=== PATIENT | male | born 1945 | race Caucasian/White ===

== ENCOUNTER 2023-08-03 06:18 | Outpatient (RCR) | payer MEDICARE, OTHER, SELFPAY | END 2023-08-03 23:59 | disposition home or self-care (01) | LOC: RPT 06:18 | PROVIDERS: ATTENDING PHYSICIAN Specialist; PRIMARYCARE PHYSICIAN Family Medicine | DX: Z47.89 Encounter for other orthopedic aftercare (principal); Z73.6 Limitation of activities due to disability; M62.81 Muscle weakness (generalized); M25.511 Pain in right shoulder | CPT/HCPCS: 97010; 97110; 97112 ==

== ENCOUNTER 2023-08-24 06:35 | Outpatient (RCR) | payer MEDICARE, OTHER, SELFPAY | END 2023-08-25 10:13 | disposition home or self-care (01) | LOC: RPT 06:35 | PROVIDERS: ATTENDING PHYSICIAN Specialist; PRIMARYCARE PHYSICIAN Family Medicine | DX: Z47.89 Encounter for other orthopedic aftercare (principal); Z73.6 Limitation of activities due to disability; M62.81 Muscle weakness (generalized); M25.511 Pain in right shoulder; M25.521 Pain in right elbow | CPT/HCPCS: 97010; 97110 ==

== ENCOUNTER → 2023-11-19 10:12 | Outpatient (REF) | payer MEDICARE, OTHER, SELFPAY ==
[2023-11-19 12:31] LABS: % Basophils 0.9 % (0-2); % Immature Granulocytes 0.2 % (0-0.5); % Lymphocytes 23.8 % (20.5-51.1); % Monocytes 10.9 % (1.7-9.3); % Neutrophils 62.2 % (42.2-75.2); Absolute Basophils 0.1 10^3/uL (0-0.2); Absolute Eosinophils 0.1 10^3/uL (0-0.7); Absolute Lymphocytes 1.3 10^3/uL (1.2-3.4); Absolute Monocytes 0.6 10^3/uL (0.1-0.6); Absolute Neutrophils 3.5 10^3/uL (1.4-6.5); Hematocrit 42.8 % (39.0-52.0); Hemoglobin 14.7 g/dL (13.0-18.0); Mean Corp Hgb Conc. 34.3 g/dL (33.0-37.0); Mean Corpuscular Hgb 33.6 pg (27.0-31.0); Mean Corpuscular Volume 97.7 fL (80.0-94.0); Mean Platelet Volume 9.8 fL (7.4-10.4); Nucleated Red Blood Cells % 0 % (-); Platelet Count 238 10^3/uL (130-400); Red Blood Cell Count 4.38 10^6/uL (4.70-6.10); Red Cell Dist. Width 12.5 % (11.5-14.5); White Blood Cell Count 5.6 10^3/uL (4.8-10.8)
[2023-11-19 12:47] LABS: ALT (SGPT) 21 U/L (0-50); AST (SGOT) 27 U/L (17-59); Albumin 4.4 g/dl (3.5-5.0); Alkaline Phosphatase 68 U/L (38-126); Blood Urea Nitrogen 22 mg/dl (9-20); Calcium 9.7 mg/dl (8.4-10.2); Carbon Dioxide 23 mmol/L (22-30); Chloride 105 mmol/L (98-107); Glucose 96 mg/dl (70-99); HDL Cholesterol 63 mg/dl; LDL Cholesterol, Calculated 112 mg/dl; Potassium 4.3 mmol/L (3.5-5.1); Sodium 141 mmol/L (135-145); Total Bilirubin 1.1 mg/dl (0.2-1.3); Total Cholesterol 191 mg/dl (50-199); Total Protein 7.4 g/dl (6.3-8.2); Triglyceride 82 mg/dl (10-149); Very Low Density Lipoprotein 16 mg/dl (0-30); eGFR > 60.00
[2023-11-19 13:19] LABS: TSH Reflex To Free T4 4.14 uIU/ml (0.47-4.68)
== END ==
LOC: REG 10:12
PROVIDERS: ATTENDING PHYSICIAN Family Medicine
DX: I10 Essential (primary) hypertension (principal); E78.00 Pure hypercholesterolemia, unspecified; E03.9 Hypothyroidism, unspecified; I25.10 Atherosclerotic heart disease of native coronary artery without angina pectoris; N28.9 Disorder of kidney and ureter, unspecified
CPT/HCPCS: 36415; 80053; 80061; 84443; 85025

== ENCOUNTER → 2024-05-21 09:35 | Outpatient (REF) | payer MEDICARE, OTHER, SELFPAY ==
[2024-05-21 11:08] LABS: % Basophils 0.7 % (0-2); % Eosinophils 1.6 % (0-6); % Immature Granulocytes 0.5 % (0-0.5); % Lymphocytes 18.7 % (20.5-51.1); % Monocytes 10.7 % (1.7-9.3); % Neutrophils 67.8 % (42.2-75.2); Absolute Eosinophils 0.1 10^3/uL (0-0.7); Absolute Lymphocytes 1.1 10^3/uL (1.2-3.4); Absolute Monocytes 0.6 10^3/uL (0.1-0.6); Absolute Neutrophils 3.9 10^3/uL (1.4-6.5); Hemoglobin 15.1 g/dL (13.0-18.0); Mean Corp Hgb Conc. 33.6 g/dL (33.0-37.0); Mean Corpuscular Hgb 33.5 pg (27.0-31.0); Mean Corpuscular Volume 99.8 fL (80.0-94.0); Nucleated Red Blood Cells % 0 % (-); Platelet Count 210 10^3/uL (130-400); Red Blood Cell Count 4.51 10^6/uL (4.70-6.10); White Blood Cell Count 5.7 10^3/uL (4.8-10.8)
[2024-05-21 11:47] LABS: ALT (SGPT) 21 U/L (0-50); AST (SGOT) 26 U/L (17-59); Albumin 4.7 g/dl (3.5-5.0); Alkaline Phosphatase 57 U/L (38-126); Blood Urea Nitrogen 22 mg/dl (9-20); Calcium 9.5 mg/dl (8.4-10.2); Carbon Dioxide 27 mmol/L (22-30); Chloride 103 mmol/L (98-107); Glucose 104 mg/dl (70-99); HDL Cholesterol 65 mg/dl; LDL Cholesterol, Calculated 124 mg/dl; Potassium 4.7 mmol/L (3.5-5.1); Sodium 144 mmol/L (135-145); Total Bilirubin 1.1 mg/dl (0.2-1.3); Total Cholesterol 204 mg/dl (50-199); Total Protein 7.4 g/dl (6.3-8.2); Triglyceride 76 mg/dl (10-149); Very Low Density Lipoprotein 15 mg/dl (0-30); eGFR > 60.00
[2024-05-21 12:03] LABS: TSH Reflex To Free T4 3.91 uIU/ml (0.47-4.68)
== END ==
LOC: REG 09:35
PROVIDERS: ATTENDING PHYSICIAN Physician Assistant; OTHER PHYSICIAN Internal Medicine Cardiovascular Disease
DX: I10 Essential (primary) hypertension (principal); E78.00 Pure hypercholesterolemia, unspecified; R29.898 Other symptoms and signs involving the musculoskeletal system; I25.10 Atherosclerotic heart disease of native coronary artery without angina pectoris; E78.5 Hyperlipidemia, unspecified; E03.9 Hypothyroidism, unspecified
CPT/HCPCS: 36415; 80053; 80061; 84443; 85025

== ENCOUNTER → 2024-07-18 15:34 | Outpatient (REF) | payer MEDICARE, OTHER, SELFPAY | LOC: RCS 15:34 | PROVIDERS: ATTENDING PHYSICIAN Family Medicine; FAMILY PHYSICIAN Family Medicine | DX: R06.02 Shortness of breath (principal) | CPT/HCPCS: 71046; 93005; 93306 ==

== ENCOUNTER → 2024-08-21 10:25 | Outpatient (REF) | payer MEDICARE, OTHER, SELFPAY ==
[2024-08-21 11:57] LABS: Blood Urea Nitrogen 25 mg/dl (9-20); Calcium 9.6 mg/dl (8.4-10.2); Carbon Dioxide 35 mmol/L (22-30); Chloride 101 mmol/L (98-107); Glucose 109 mg/dl (70-99); Potassium 4.8 mmol/L (3.5-5.1); Sodium 143 mmol/L (135-145); eGFR 50.81
[2024-08-21 11:58] LABS: NT-proBNP 5580 pg/ml
== END ==
LOC: REG 10:25
PROVIDERS: ATTENDING PHYSICIAN Physician Assistant
DX: I50.30 Unspecified diastolic (congestive) heart failure (principal)
CPT/HCPCS: 36415; 80048; 83880

== ENCOUNTER → 2024-08-31 06:51 | Outpatient (REF) | payer MEDICARE, OTHER, SELFPAY | LOC: RCS 06:51 | PROVIDERS: ATTENDING PHYSICIAN Internal Medicine Cardiovascular Disease; FAMILY PHYSICIAN Family Medicine | DX: I10 Essential (primary) hypertension (principal); I48.0 Paroxysmal atrial fibrillation | CPT/HCPCS: 78452; 93017; A9500; J2785 ==

== ENCOUNTER 2024-09-10 07:01 | Day surgery (SDC) | payer MEDICARE, OTHER, SELFPAY ==
[2024-09-10 07:30] VITALS: BMI 29.0
== END 2024-09-10 08:41 | disposition home or self-care (01) ==
LOC: CATH 07:01
PROVIDERS: ATTENDING PHYSICIAN Internal Medicine Cardiovascular Disease; FAMILY PHYSICIAN Family Medicine; OTHER PHYSICIAN Internal Medicine Cardiovascular Disease
DX: I48.91 Unspecified atrial fibrillation (principal); I48.3 Typical atrial flutter; I10 Essential (primary) hypertension; E78.00 Pure hypercholesterolemia, unspecified; E03.9 Hypothyroidism, unspecified; I25.10 Atherosclerotic heart disease of native coronary artery without angina pectoris; Z85.828 Personal history of other malignant neoplasm of skin; Z87.891 Personal history of nicotine dependence; Z79.01 Long term (current) use of anticoagulants
CPT/HCPCS: 92960; 93005

== ENCOUNTER → 2024-10-29 07:54 | Outpatient (REF) | payer MEDICARE, OTHER, SELFPAY ==
[2024-10-29 08:40] LABS: % Basophils 0.8 % (0-2); % Eosinophils 2.2 % (0-6); % Immature Granulocytes 0.2 % (0-0.5); % Lymphocytes 17.2 % (20.5-51.1); % Monocytes 9.1 % (1.7-9.3); % Neutrophils 70.5 % (42.2-75.2); Absolute Eosinophils 0.1 10^3/uL (0-0.7); Absolute Lymphocytes 0.9 10^3/uL (1.2-3.4); Absolute Monocytes 0.5 10^3/uL (0.1-0.6); Absolute Neutrophils 3.6 10^3/uL (1.4-6.5); Hematocrit 42.8 % (39.0-52.0); Mean Corpuscular Hgb 33.1 pg (27.0-31.0); Mean Corpuscular Volume 94.5 fL (80.0-94.0); Mean Platelet Volume 9.8 fL (7.4-10.4); Nucleated Red Blood Cells % 0 % (-); Platelet Count 197 10^3/uL (130-400); Red Blood Cell Count 4.53 10^6/uL (4.70-6.10); Red Cell Dist. Width 13.4 % (11.5-14.5); White Blood Cell Count 5.1 10^3/uL (4.8-10.8)
[2024-10-29 08:46] LABS: INR 1.22; PT 15.7 Sec (11.4-14.6)
[2024-10-29 08:52] LABS: ALT (SGPT) 25 U/L (0-50); AST (SGOT) 28 U/L (17-59); Albumin 4.3 g/dl (3.5-5.0); Alkaline Phosphatase 55 U/L (38-126); Blood Urea Nitrogen 27 mg/dl (9-20); Calcium 9.5 mg/dl (8.4-10.2); Carbon Dioxide 26 mmol/L (22-30); Chloride 109 mmol/L (98-107); Glucose 99 mg/dl (70-99); Magnesium 1.7 mg/dl (1.6-2.3); Potassium 4.2 mmol/L (3.5-5.1); Sodium 144 mmol/L (135-145); Total Bilirubin 1.2 mg/dl (0.2-1.3); Total Protein 7.1 g/dl (6.3-8.2); eGFR 50.81
== END ==
LOC: SDSPAT 07:54
PROVIDERS: ATTENDING PHYSICIAN Internal Medicine Cardiovascular Disease; FAMILY PHYSICIAN Family Medicine; OTHER PHYSICIAN Internal Medicine Cardiovascular Disease
DX: I48.0 Paroxysmal atrial fibrillation (principal)
CPT/HCPCS: 36415; 75572; 80053; 83735; 85025; 85610; 86850; 86900; 86901; 93005; Q9967

== ENCOUNTER 2024-11-08 07:02 | Day surgery (SDC) | payer MEDICARE, OTHER, SELFPAY ==
--- NOTE | 2024-10-31 08:34 | HPS.HSE ---
Family Physician
-
Family Physician: NO INTERVIEW UNKNOWN
Chief Complaint
-
Persistent atrial fibrillation. Typical atrial flutter.
History of Present Illness
The patient is an 79-year-old male presenting today for persistent atrial fibrillation with underlying typical atrial flutter. The patient reports a history of shortness of breath, mainly with exertion, secondary to this diagnosis. He
previously underwent two CARMEN-guided cardioversions in June 2022 and September 2024 for his atrial arrhythmias. Fortunately, he has noticed an improvement in his shortness of breath after his most recent cardioversion. He is on current
pharmacological therapy with Amiodarone and Metoprolol Succinate. He does report compliance with Eliquis for oral anticoagulation. He is interested in pursuing with pulmonary vein isolation for further arrhythmia management. Prior to undergoing his
ablation, he will proceed with a transesophageal echocardiogram to definitively rule out a left atrial appendage thrombus. He denies any current complaints today such as chest pain, shortness of breath at rest, nausea, vomiting, diarrhea,
lightheadedness, dizziness, cough, sore throat, or fever.
Medical History
Past Medical History
Past Medical History: Reports Other
Additional Past Medical History:
1. Persistent atrial fibrillation with typical atrial flutter, status post CARMEN-guided cardioversion x2; pharmacological therapy with Metoprolol Succinate and Amiodarone, oral anticoagulation with Eliquis.
2. Hypertension.
3. Hypercholesterolemia.
4. Coronary artery disease.
5. Aortic atherosclerosis.
6. First-degree AV block.
7. Congestive heart failure, preserved ejection fraction.
8. 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
9. 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
10. Chronic kidney disease stage 3.
11. Multilevel degenerative disc disease.
12. Hypothyroidism.
13. Skin cancer, including Melanoma, status post multiple excisions.
14. Chronic postnasal drip.
15. History of fever of unknown origin.
16. Hearing impairment bilaterally.
17. Obesity, BMI 32.0.
18. Remote history of tobacco abuse.
Past Surgical History: Reports Other
Additional Past Surgical History:
1. CARMEN guided cardioversion x2.
2. Right greater saphenous vein ablation.
3. Right shoulder rotator cuff repair.
4. Bilateral carpal tunnel release.
5. Appendectomy.
6. Tonsillectomy.
7. Multiple skin cancer excisions.
8. Bilateral cataract extraction.
9. Colonoscopy x3.
Social History
Tobacco: Former Smoker (He is a former 1 pack per day cigarette smoker who quit tobacco products altogether in 1975.)
Alcohol: Other (He reports, on average, drinking alcohol 1-2 times a week. )
Personal:
Living: Other (The patient lives in a two-story home with his .)
Family History
Family History: Not pertinent
Allergies / Home Medications
Allergy/Medication List:
Home medications:
1. Amiodarone 200 mg p.o. daily.
2. Apixaban 5 mg p.o. twice a day.
3. Cholecalciferol 50 mcg p.o. twice a day.
4. Furosemide 20 mg p.o. daily.
5. Levothyroxine 25 mcg p.o. daily.
6. Metoprolol Succinate 25 mg p.o. daily.
7. Multivitamin 1 tablet p.o. daily.
8. Rosuvastatin 10 mg p.o. every other day.
Allergies: No known allergies.
Review of Systems
-
A 12 point ROS was completed and negative except as noted: Yes
Physical Exam
Vital Signs
Blood pressure 138/79, heart rate 58, respirations 18, pulse ox 98 percent on room air.
Height 6 feet, weight 107.1 kg, BMI 32.0.
Physical Exam
General: Well Developed, Well Nourished and No Apparent Distress
HEENT: NormoCephalic, Moist mucous membranes, Atraumatic and PERRLA
Respiratory: Clear
Cardiac: Bradycardia
GI: Soft, Non Tender, Non Distended and Other (Obese. )
Musculoskeletal: No Edema, Normal Gait & Station and Other (Approximately 1' superficial wound of right forearm, healing appropriately. No bleeding or discharge noted. )
Skin: Warm and Dry
Neuro: AO x 3 and Nonfocal/grossly intact
Laboratory Results
-
DIAGNOSTIC STUDIES as of 10/29/2024: White blood cell count 5.1, hemoglobin 15.0, platelet count 197,000. PT 15.7, INR 1.22. Sodium 144, potassium 4.2, BUN 27, creatinine 1.4, glucose 99, calcium 9.5, magnesium 1.7, AST 28, ALT 25, albumin 4.3.
Blood type A negative.
EKG 10/29/2024: Sinus bradycardia with first-degree AV block. Otherwise normal EKG.
Chest CT 10/29/2024: Short segment common vestibule for the left superior and inferior pulmonary veins, fairly commonly seen and considered normal variant. Partial non opacification of the left atrial appendage possibly related to incomplete
contrast filling; however, cannot rule out thrombus. The left atrium is otherwise well opacified.
Nuclear stress test 08/31/2024: No evidence of ischemia or scar. Inferior soft tissue attenuation artifact present. The ejection fraction is 34%. Stress risk is intermediate risk due to the use of a pharmacological agent.
Echocardiogram 07/18/2024: Left ventricular ejection fraction is 51%. Moderate concentric left ventricular hypertrophy. Stage II diastolic dysfunction suggestive of abnormal relaxation and increased filling pressures. Normal right ventricular size
and function. Severely dilated left atrium. No significant valvular pathology. Compared to the prior transesophageal echocardiogram dated 06/18/2022, there is no significant change.
Impression/Plan
-
IMPRESSION/PLAN:
1. Persistent atrial fibrillation and typical atrial flutter: The patient is in need of pulmonary vein isolation; however, he will undergo a tranesophageal echocardiogram first on 11/08/[address] Timothy Bertrand to definitively rule out a left
atrial appendage thrombus. The benefits and risks of the procedure have been explained to the patient. The patient understands these risks and wishes to proceed.
2. Chronic kidney disease: Given his recent creatinine, his Furosemide was recently reduced from daily dosing to Tuesday, Tuesday, and Tuesday dosing. He will undergo a repeat BMP in the near future at the discretion of Dr. Jack Patel.
[2024-11-08 07:58] VITALS: BMI 31.4
== END 2024-11-08 10:20 | disposition home or self-care (01) ==
LOC: CATH 07:02
PROVIDERS: ATTENDING PHYSICIAN Internal Medicine Cardiovascular Disease; FAMILY PHYSICIAN Family Medicine; OTHER PHYSICIAN Internal Medicine Cardiovascular Disease
DX: I48.19 Other persistent atrial fibrillation (principal); Q21.12 Patent foramen ovale; I48.3 Typical atrial flutter; I13.0 Hypertensive heart and chronic kidney disease with heart failure and stage 1 through stage 4 chronic kidney disease, or unspecified chronic kidney disease; E78.00 Pure hypercholesterolemia, unspecified; I25.10 Atherosclerotic heart disease of native coronary artery without angina pectoris; E03.9 Hypothyroidism, unspecified; I44.0 Atrioventricular block, first degree; I70.0 Atherosclerosis of aorta; Z85.828 Personal history of other malignant neoplasm of skin; Z85.820 Personal history of malignant melanoma of skin; Z87.891 Personal history of nicotine dependence; E66.9 Obesity, unspecified; Z68.32 Body mass index [BMI] 32.0-32.9, adult; H91.93 Unspecified hearing loss, bilateral; R09.82 Postnasal drip; I08.3 Combined rheumatic disorders of mitral, aortic and tricuspid valves; I08.8 Other rheumatic multiple valve diseases; I50.9 Heart failure, unspecified; N18.30 Chronic kidney disease, stage 3 unspecified; Z79.01 Long term (current) use of anticoagulants; Z79.899 Other long term (current) drug therapy; Z79.890 Hormone replacement therapy
CPT/HCPCS: 93312; 93320; 93325

== ENCOUNTER 2024-11-12 06:04 | Day surgery (SDC) | payer MEDICARE, OTHER, SELFPAY ==
[2024-10-29 08:06] VITALS: BMI 32.1
[2024-11-12] VITALS (14 sets, daily range): BP systolic 118–166; BP diastolic 65–94
--- NOTE | 2024-11-12 08:00 | ITS.CL.ABL ---
Ticket Dispatcher - Ablation
Ablation
Procedure Report:
ELECTROPHYSIOLOGIC STUDY AND POSSIBLE ABLATION
DATE: November 12, 2024
Primary Care Provider: Dr. Major Orosco
Primary Programmer Business: Dr. Jennifer Ko
INDICATION:
Symptomatic Atrial Fibrillation as well as atrial flutter.
Persistent
HISTORY: See H and P.
Symptomatic AF, poorly controlled with attempted medical therapy
HAS-BLED: 2
Age
Abnormal Renal Function
CHADSVASc: 4
HFimpEF, NYHA Class 2, LVEF improved from 34% in Aug 2024 while in AF, to 50% in November 2024 while in SR.
HTN
Age
CARMEN 11/08/24:
Left ventricular ejection fraction is 50%.
Mildly dilated left and right atriums.
Left atrial appendage is mildly dilated. Spontaneous echo contrast seen in the left atrial appendage. No thrombus detected in the left atrial appendage.
Mild mitral regurgitation.
Small patent foramen ovale is present via color-flow Doppler.
PRESENTING RHYTHM: SR
HISTORY: See H and P.
Symptomatic AF, poorly controlled with attempted medical therapy.
He was referred from Dr. Ko regarding symptomatic persistent atrial fibrillation.� ECG from September 07 2024 is reviewed by me and finds atrial fibrillation. He most recently required cardioversion September 10, 2024 despite ongoing antiarrhythmic
drug therapy with amiodarone.
His medical history includes prior diagnosis of atrial flutter subsequently diagnosed with atrial fibrillation as well.� His history is also complicated by relapsing pericarditis and pericardial effusion which is felt to be of viral origin.
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
Review of his series of ECGs over the past several years has demonstrated what appears to be typical right atrial flutter as well as atrial fibrillation.
ANTICOAGULATION: Eliquis 5 mg twice daily
'TIME-OUT': called and confirmed.
SEDATION/ANESTHESIA: provided via the anesthesia department using general anesthesia.
PROCEDURE:
Ultrasound Guidance with real-time visualization of needle insertion and vessel patency performed by ma for femoral venous Vascular Access.
Under real-time US guidance, the needle was advanced with negative pressure into the vein. The needle was seen entering the vessel lumen with a good return of dark red flow, the syringe was removed, non-pulsatile, dark red blood low was noted and
the wire was passed without difficulty, then the needle was removed. US confirmed the wire was in the vein, not going into an artery,
Images were taken and saved for the patient's permanent record. Imaging findings typical femoral venous anatomy. Direct visualization of needle puncture into the femoral vein was observed and recorded.
A decapolar CS catheter was placed within the CS for mapping and pacing.
The intracardiac ultrasound catheter was positioned in the RA for continuous intracardiac ultrasound imaging.
Heparin bolus and infusion to target ACT at 300 -350 seconds was administered. Transseptal puncture was performed. This entailed advancing a sheath with dilator into the superior vena cava and withdrawing both (monitoring intracardiac ultrasound,
fluoroscopy and tip pressure) with the tip oriented toward the atrial septum. The fossa ovalis was engaged (indicated by sudden displacement of the sheath tip as well as tenting of the fossa seen on intracardiac ultrasound).
Transseptal puncture was performed. Left atrial catheter position was confirmed by echocardiographic imaging, pressure monitoring (LA mean pressure [ ] mm Hg) and fluoroscopy. The sheath was advanced over the dilator and positioned in the left
atrium.
The [employer] multipolar mapping/ablation Sphere-9 catheter was positioned through the transseptal sheath for high density mapping.
Geometry and voltage mapping was performed using the [employer] mapping system for three-dimensional electroanatomical mapping.
Catheter positioning was guided and confirmed using both I.C.E. and fluoroscopy.
PV isolation approach was used to electrically isolate each PV ostia (LSPV, LIPV, RSPV, RIPV).
Additional energy applications/additional ablation set was required to accomplish wide area circumferential ablation around each of the pulmonary vein sets and additionally ablation to accomplish LA posterior wall ablation.
Remapping with the Sphere-9 catheter found that all PVPs were eliminated at each vein demonstrating entrance block. Also pacing around the the circumference of the ostia was performed at 10 ma and 2.0 msec output to assess for exit block. This
demonstrated electrical isolation at each of the pulmonary vein ostia (LSPV, LIPV, RSPV, RIPV). There is also entrance and exit block at the LA posterior wall.
He has documented typical right atrial flutter on prior EKGs. Therefore cavotricuspid isthmus ablation targeting his clinical SVT (typical right atrial flutter) was performed. This entailed mapping of the cavotricuspid isthmus in sinus rhythm and
with atrial pacing, identifying the likely critical isthmus of typical right atrial flutter and delivering ablation lesions, first RF lesions closer to the tricuspid annulus and then pulsed electric field energy deliveries closer to the inferior
vena cava along a line from the tricuspid valve isthmus to the IVC at approximately 6:00 in the 30 degree DANISH projection. Once ablation was completed, differential pacing was utilized to confirm bidirectional block across the CTI.
Programmed electrostimulation with burst atrial pacing as well as delivery of atrial decremental extrastimuli down to atrial ERP failed to induce any sustained arrhythmias.
I.C.E. :
Pre-Ablation Post-Ablation
LVEF: 45-50 % 45-50 %
WMA: None none
Pericardial effusion: None none
COMPLICATIONS:
None
SUMMARY:
- Mapping and ablation to isolate the PVs
- Additional AF ablation set after PVI (left atrial posterior wall ablation/isolation).
- Mapping and ablation of second tachycardia (SVT/typical right atrial flutter)
- 3-D Electroanatomical Mapping
- Intracardiac Ultrasound
- Ultrasound guidance for vascular access
Post ablation, I discussed today's findings and results with the patient's , Nicky.
RECOMMENDATIONS:
- Observe in monitored bed.
- Maintain oral anticoagulation.
- Office visit has been scheduled with me for March 14, 2025.
- Continue cardiovascular care with Dr Ko
Copy to:
Dr. Major Orosco
Dr. Jennifer Ko
[2024-11-12 08:49] LABS: ACT-LR - POC 292 Seconds (116-155)
[2024-11-12 09:07] LABS: ACT-LR - POC 366 Seconds (116-155)
[2024-11-12 09:23] LABS: ACT-LR - POC 305 Seconds (116-155)
[2024-11-12 09:49] LABS: ACT-LR - POC 356 Seconds (116-155)
--- NOTE | 2024-11-12 14:28 | W.PN.UPDATE ---
Update Note
Progress Note Update
Pt seen post PFA. Right groin site without ht/bleeding, non tender. OOB ambulating, urinating without difficulty. Post EKG NSR w/1sts deg AVB 60s, as before, no acute changes. Resume eliquis tonight. Discontinue amiodarone at this time. Followup at
[facility] as scheduled. Home today if groin site/tele remain stable.
== END 2024-11-12 15:03 | disposition home or self-care (01) ==
LOC: CATH 06:04
PROVIDERS: ATTENDING PHYSICIAN Internal Medicine Cardiovascular Disease; FAMILY PHYSICIAN Family Medicine
DX: I48.19 Other persistent atrial fibrillation (principal); I48.3 Typical atrial flutter; I13.0 Hypertensive heart and chronic kidney disease with heart failure and stage 1 through stage 4 chronic kidney disease, or unspecified chronic kidney disease; N18.30 Chronic kidney disease, stage 3 unspecified; I50.32 Chronic diastolic (congestive) heart failure; E78.00 Pure hypercholesterolemia, unspecified; I25.10 Atherosclerotic heart disease of native coronary artery without angina pectoris; I70.0 Atherosclerosis of aorta; I44.0 Atrioventricular block, first degree; E03.9 Hypothyroidism, unspecified; R09.82 Postnasal drip; H91.93 Unspecified hearing loss, bilateral; I83.90 Asymptomatic varicose veins of unspecified lower extremity; E66.9 Obesity, unspecified; Z68.32 Body mass index [BMI] 32.0-32.9, adult; Q21.12 Patent foramen ovale; I47.10 Supraventricular tachycardia, unspecified; Z90.49 Acquired absence of other specified parts of digestive tract; Z87.891 Personal history of nicotine dependence; Z79.899 Other long term (current) drug therapy; Z79.890 Hormone replacement therapy; Z79.01 Long term (current) use of anticoagulants; Z98.890 Other specified postprocedural states; Z90.89 Acquired absence of other organs; Z85.828 Personal history of other malignant neoplasm of skin; Z85.820 Personal history of malignant melanoma of skin
CPT/HCPCS: C1733; C1894; C1769; C1766; C1730; C1892; 85347; 86900; 86901; 93005; 93655; 93656; 93657

== ENCOUNTER → 2025-02-26 12:47 | Outpatient (REF) | payer MEDICARE, OTHER, SELFPAY ==
[2025-02-26 15:03] LABS: ALT (SGPT) 23 U/L (0-50); AST (SGOT) 29 U/L (17-59); Albumin 4.1 g/dl (3.5-5.0); Alkaline Phosphatase 55 U/L (38-126); Blood Urea Nitrogen 23 mg/dl (9-20); Calcium 9.5 mg/dl (8.4-10.2); Carbon Dioxide 31 mmol/L (22-30); Chloride 104 mmol/L (98-107); Glucose 91 mg/dl (70-99); Potassium 4.4 mmol/L (3.5-5.1); Sodium 140 mmol/L (135-145); Total Protein 7.0 g/dl (6.3-8.2); eGFR > 60.00
[2025-02-28 16:43] LABS: Lyme Antibody Screen, EIA Negative (Negative)
== END ==
LOC: REG 12:47
PROVIDERS: ATTENDING PHYSICIAN Family Medicine
DX: I10 Essential (primary) hypertension (principal); E78.00 Pure hypercholesterolemia, unspecified; R29.898 Other symptoms and signs involving the musculoskeletal system; I25.10 Atherosclerotic heart disease of native coronary artery without angina pectoris; R26.9 Unspecified abnormalities of gait and mobility; G62.9 Polyneuropathy, unspecified; M25.40 Effusion, unspecified joint
CPT/HCPCS: 36415; 80053; 84550; 86618; 86666

== ENCOUNTER → 2025-03-29 08:13 | Outpatient (REF) | payer MEDICARE, OTHER, SELFPAY | LOC: HWRAD 08:13 | PROVIDERS: ATTENDING PHYSICIAN Specialist; FAMILY PHYSICIAN Family Medicine | DX: M25.511 Pain in right shoulder (principal) | CPT/HCPCS: 73200 ==

== ENCOUNTER → 2025-04-18 09:23 | Outpatient (REF) | payer MEDICARE, OTHER, SELFPAY ==
[2025-04-18 10:31] LABS: Hematocrit 40.8 % (39.0-52.0); Hemoglobin 13.4 g/dL (13.0-18.0); Mean Corp Hgb Conc. 32.8 g/dL (33.0-37.0); Mean Corpuscular Volume 98.8 fL (80.0-94.0); Nucleated Red Blood Cells % 0 % (-); Platelet Count 206 10^3/uL (130-400); Red Cell Dist. Width 14.5 % (11.5-14.5)
[2025-04-18 11:02] LABS: ALT (SGPT) 22 U/L (0-50); AST (SGOT) 27 U/L (17-59); Albumin 4.4 g/dl (3.5-5.0); Alkaline Phosphatase 59 U/L (38-126); Carbon Dioxide 28 mmol/L (22-30); Glucose 100 mg/dl (70-99); HDL Cholesterol 63 mg/dl; Magnesium 1.8 mg/dl (1.6-2.3); Potassium 4.2 mmol/L (3.5-5.1); Sodium 142 mmol/L (135-145); Total Protein 7.3 g/dl (6.3-8.2); Very Low Density Lipoprotein 15 mg/dl (0-30); eGFR 55.53
[2025-04-18 11:11] LABS: Blood Urea Nitrogen 23 mg/dl (9-20); Calcium 9.5 mg/dl (8.4-10.2); Chloride 108 mmol/L (98-107); LDL Cholesterol, Calculated 137 mg/dl
== END ==
LOC: REG 09:23
PROVIDERS: ATTENDING PHYSICIAN Internal Medicine Cardiovascular Disease; FAMILY PHYSICIAN Family Medicine
DX: I48.3 Typical atrial flutter (principal); I25.10 Atherosclerotic heart disease of native coronary artery without angina pectoris; I50.30 Unspecified diastolic (congestive) heart failure; E78.5 Hyperlipidemia, unspecified
CPT/HCPCS: 36415; 80053; 80061; 83735; 83880; 84439; 84443; 85025

== ENCOUNTER 2025-04-26 06:13 | Day surgery (SDC) | payer MEDICARE, OTHER, SELFPAY ==
--- NOTE | 2025-04-10 12:40 | CM ---
CM reviewed medical records. CM attempted orthopedic IA. Patient was busy and requested a call back.
--- NOTE | 2025-04-10 13:37 | CM ---
Demographics: confirmed
Living situation: lives with
Support Person Post Operatively:
History of
VN: No
SNF: No
Outpatient: Plans to use [facility]
Has patient purchased required equipment: none
PCP: Ezequiel
Pharmacy: [facility]
Post Operative Discharge Plan: Home with .
[2025-04-12 11:01] LABS: Hematocrit 41.6 % (39.0-52.0); Hemoglobin 13.9 g/dL (13.0-18.0); Mean Corp Hgb Conc. 33.4 g/dL (33.0-37.0); Mean Corpuscular Volume 98.1 fL (80.0-94.0); Platelet Count 216 10^3/uL (130-400); Red Cell Dist. Width 14.3 % (11.5-14.5)
[2025-04-12 11:53] LABS: ALT (SGPT) 17 U/L (0-50); AST (SGOT) 23 U/L (17-59); Albumin 4.3 g/dl (3.5-5.0); Alkaline Phosphatase 60 U/L (38-126); Blood Urea Nitrogen 24 mg/dl (9-20); Calcium 9.3 mg/dl (8.4-10.2); Carbon Dioxide 28 mmol/L (22-30); Chloride 107 mmol/L (98-107); Glucose 138 mg/dl (70-99); Potassium 3.9 mmol/L (3.5-5.1); Sodium 143 mmol/L (135-145); Total Protein 7.1 g/dl (6.3-8.2); eGFR 55.53
[2025-04-12 12:49] LABS: Glycohemoglobin (HgbA1c) 5.7 % (4.0-5.6)
[2025-04-12 14:04] VITALS: BMI 30.1
--- NOTE | 2025-04-12 14:30 | HPS.HSE ---
Family Physician
-
Family Physician: Major Nieves
Chief Complaint
-
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 Same-day surgery.
History of Present Illness
The patient is an 79-year-old male presenting today for advanced primary osteoarthritis of the right shoulder with rotator cuff arthropathy. The patient reports significant right shoulder pain and instability secondary to this diagnosis.
He notes that his current right shoulder symptoms are greatly interfering with his activities of daily living and are overall impacting his quality of life. He has tried and failed multiple conservative treatment measures in the past for his right
shoulder pain and instability. These conservative treatment measures include activity modification, self-directed therapeutic exercises, corticosteroid injections, medical management with Tylenol, and the application of ice and/or heat. Recent MRI
findings of the right shoulder showed mild distal supraspinatus and infraspinatus tendinosis, mild loss of muscle bulk involving the supraspinatus muscle, mild subacromial/subdeltoid bursitis, presumed prior biceps tenodesis, and mild glenohumeral
and acromioclavicular joint osteoarthritis. He was determined to be in need of a right reverse total shoulder arthroplasty. He denies any current complaints today such as chest pain, shortness of breath at rest, palpitations, nausea, vomiting,
diarrhea, dizziness, lightheadedness, cough, sore throat, or fever.
Medical History
Past Medical History
Past Medical History: Reports Other
Additional Past Medical History:
1. Osteoarthritis with rotator cuff arthropathy.
2. Hypertension.
3. Hypercholesterolemia.
4. Coronary artery disease.
5. Aortic atherosclerosis.
6. Persistent atrial fibrillation and typical atrial flutter, status post CARMEN-guided pulmonary vein isolation, 11/2024, and cardioversion x2; medical therapy with Metoprolol Succinate, oral anticoagulation with Eliquis.
7. First-degree AV block.
8. Congestive heart failure, preserved ejection fraction.
9. Relapsing pericarditis with associated pericardial effusion, likely viral etiology, 06/2019 to 09/2019, treated with NSAIDs and Colchicine.
10. Mild mitral regurgitation.
11. Small PFO per recent CARMEN 11/2024.
12. Venous varicosities, status post right greater saphenous vein ablation.
13. Chronic kidney disease stage 3.
14. Multilevel degenerative disc disease.
15. Spinal stenosis.
16. Hypothyroidism.
17. Skin cancer, including Melanoma, status post multiple excisions.
18. Intermittent chest rash, on Triamcinolone cream as needed.
19. Chronic postnasal drip.
20. History of fever of unknown origin.
21. Gout.
22. Hearing impairment bilaterally.
23. Prediabetes, A1c 5.7.
24. Obesity, BMI 30.1.
25. Remote history of tobacco abuse.
Past Surgical History: Reports Other
Additional Past Surgical History:
1. Right shoulder rotator cuff repair.
2. Bilateral carpal tunnel release.
3. CARMEN-guided pulmonary vein isolation.
4. CARMEN guided cardioversion x2.
5. Right greater saphenous vein ablation.
6. Appendectomy.
7. Tonsillectomy.
8. Multiple skin cancer excisions.
9. Bilateral cataract extraction.
10. Colonoscopy x3.
Social History
Tobacco: Former Smoker (He is a former 1 pack per day cigarette smoker who quit tobacco products altogether in 1975.)
Alcohol: Other (He reports, on average, drinking alcohol 1-2 times a week.)
Personal:
Living: Other (The patient lives in a two-story home with his .)
Family History
Family History: Not pertinent
Allergies / Home Medications
Allergy/Medication List:
Home medications:
1. Allopurinol 300 mg p.o. daily.
2. Apixaban 5 mg p.o. twice a day.
3. Cholecalciferol 50 mcg p.o. twice a day.
4. Furosemide 20 mg p.o. daily.
5. Levothyroxine 25 mcg p.o. daily.
6. Metoprolol Succinate 25 mg p.o. daily.
7. Multivitamin 1 tablet p.o. daily.
8. Rosuvastatin 10 mg p.o. every other day.
9. Triamcinolone acetonide 0.1% cream, 1 application topical daily as needed.
Allergies: No known allergies.
Review of Systems
-
A 12 point ROS was completed and negative except as noted: Yes
Physical Exam
Vital Signs
Blood pressure 131/78, heart rate 78, respirations 18, pulse ox 97 percent on room air.
Height 6 feet, 3 inches, weight 109.1 kg, BMI 30.1.
Physical Exam
General: Well Developed, Well Nourished and No Apparent Distress
HEENT: NormoCephalic, Moist mucous membranes, Atraumatic, PERRLA and Hearing Impaired
Respiratory: Clear
Cardiac: Regular Rhythm
GI: Soft, Non Tender, Non Distended and Other (Obese. )
Musculoskeletal: Other (Left shoulder: Relatively normal exam. No tenderness to palpation. Full range of motion without pain. Strength is intact. Negative impingement. Right shoulder: Strength limited. Elevation 20. ER 20.)
Skin: Warm, Dry and Rash (Small chest rash distal to where right shoulder incision will be. )
Neuro: AO x 3 and Nonfocal/grossly intact
Laboratory Results
-
04/12/25 09:43
04/12/25 09:43
Laboratory Results
Total Bilirubin 0.9 mg/dl (0.2-1.3) 04/12/25:43
AST 23 U/L (17-59) 04/12/25 09:43
ALT 17 U/L (0-50) 04/12/25 09:43
Alkaline Phosphatase 60 U/L (38-126) 04/12/25:43
Hemoglobin A1c 5.7.
MRSA screen negative.
EKG provided by Cardiology.
Transesophageal echocardiogram 11/08/2024: Normal left ventricular chamber size. Low normal left ventricular systolic function. Mild concentric left ventricular hypertrophy. Left ventricular ejection fraction is 50%. Normal right ventricular size
and function. Mildly dilated left atrium. Mildly dilated right atrium. Left atrial appendage is mildly dilated. Spontaneous echo contrast seen in the left atrial appendage. No thrombus detected in the left atrial appendage. Peak velocities within
the left atrial appendage are 40cm/sec. Mild mitral regurgitation. Small patent foramen ovale is present via color-flow Doppler.
Nuclear stress test 08/31/2024: No evidence of ischemia or scar. Inferior soft tissue attenuation artifact present. The ejection fraction is 34%. Stress risk is intermediate risk due to the use of a pharmacological agent.
Impression/Plan
-
CLEARANCES:
1. Primary medical, Vianey rBuce PA-C, cleared.
Primary medical phone number: [phone].
2. Cardiology, Dr. Jennifer Sanches, cleared.
3. Dental cleared.
IMPRESSION/PLAN:
1. Advanced primary osteoarthritis of the right shoulder in need of a right reverse total shoulder arthroplasty with Dr. Jose A Ram on 04/26/2025. The benefits and risks of the procedure have been explained to the patient. The patient understands
these risks and wishes to proceed.
2. Deep vein thrombosis prophylaxis: Eliquis at modified dosing and bilateral venous compression devices. The patient was made aware to hold his Eliquis 72 hours prior to his procedure given his history of chronic kidney disease. He will resume his
home Eliquis dosing on post-operative day three as long as he remains hemodynamically stable. Plasma flow devices were highly encouraged to be used in the outpatient setting upon discharge.
3. Intermittent chest rash: The patient was advised to use his Triamcinolone cream daily as his rash is notably just distal to where he surgical incision will be. His surgeon was made aware of this rash pre-operatively. Given his rash does not
appear to be infectious, we can proceed with surgery as planned.
4. Pain management: The patient has stable comorbidities as referenced by his primary care physician and senior asset manager and is medically optimized to proceed as a Same-Day Surgery candidate on 04/26/2025. In preparation for his procedure, he has
already been prescribed Oxycodone 5 mg, one to two tablets p.o. every six hours as needed for moderate to severe post-operative pain. He will also utilize Acetaminophen 1000 mg p.o. every six hours, Dexamethasone 4 mg p.o. twice a day for 3 days
post-procedure, and Gabapentin 300 mg p.o. at bedtime for neuropathic pain and sleep.
5. Post-operative bowel regimen: The patient was advised to purchase Colace and Senokot for post-operative use. These will be taken twice a day post-procedure, regardless of oral intake, until he is having regular bowel movements. Adequate
hydration, early mobility as tolerated, and the minimization of opioids were also discussed haja-operatively.
6. Complex cardiovascular history: The patient's senior asset manager has requested an EKG be done post-surgery.
Patient's phone number: [phone].
Patient's contact (Nicky Miles - Spouse): [phone] (H); [phone] (C).
[2025-04-15 16:27] VITALS: BMI 30.1
[2025-04-26] VITALS (10 sets, daily range): BP systolic 123–150; BP diastolic 70–89; BMI 30.1
[2025-04-26] MEDS: TYLENOL 1000 MG PO (08:54)
[2025-04-26] MEDS: CELEBREX 200 MG PO (08:54)
[2025-04-26] MEDS: NORMOSOL-R/PLASMALYTE-A 1000 IV (09:31)
[2025-04-26] MEDS: ANCEF 5 IV (15:01)
== END 2025-04-26 15:25 | disposition home or self-care (01) ==
LOC: SDS 06:13
PROVIDERS: ATTENDING PHYSICIAN Specialist; FAMILY PHYSICIAN Family Medicine; OTHER PHYSICIAN Physician Assistant; REFERRING PHYSICIAN Internal Medicine Cardiovascular Disease
DX: M19.011 Primary osteoarthritis, right shoulder (principal)
CPT/HCPCS: 23472; 36415; 73020; 80053; 83036; 85027; 87070; 93005; C1713; C1776

== ENCOUNTER → 2025-05-06 12:43 | Outpatient (REF) | payer MEDICARE, OTHER, SELFPAY ==
[2025-05-06 14:51] LABS: Uric Acid 5.3 mg/dl (3.5-8.5)
== END ==
LOC: REG 12:43
PROVIDERS: ATTENDING PHYSICIAN Family Medicine
DX: M10.9 Gout, unspecified (principal)
CPT/HCPCS: 36415; 84550